=== PATIENT | male | born 1960 | race Caucasian/White ===

== ENCOUNTER 2023-02-16 09:36 | Outpatient (AMB) | payer BC, OTHER, SELFPAY ==
--- NOTE | 2023-02-16 09:45 | AM.OFFWIN_ITS ---
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 Pt c/o L index finger pain that started a week ago. Allergies simvastatin Allergy (Verified 02/16/23 10:10) memory loss Medication List - Last Reconciled 02/16/23 by Christine Stock, SC[employer]ER- folic acid 1 mg PO DAILY lisinopril 20 mg PO DAILY potassium citrate ER 10 mEq PO BID pravastatin 40 mg PO DAILY Do you need a note to return to daycare/school/sports/work: No HPI HPI Comments History of Present Illness Details Here today complains of pain in his left index finger this started 1 week ago. Reports injuring it perhaps lifting something. The tip of his finger was tender to the touch and swollen. He has been treating at home with Advil and immobilization using a splint. Unfortunately after 1 week the pain continues. The swelling has improved some. He denies fevers or chills. Reports good feeling and sensation in the finger. Admits limited range of m otion due to pain and swelling. Review of Systems Const All systems reviewed & are unremarkable except as noted in HPI and below Physical Exam Vital Signs: Last Vital Signs Pulse 74 02/16/23 09:46 BP 136/82 02/16/23 09:46 Pulse Ox 98 02/16/23 09:46 Oxygen Delivery Method Room Air 02/16/23 09:46 BMI result Body Mass Index 30.5 Const Other: Awake alert oriented Speaking in full sentences Positive radial pulse on the left, pain swelling over left DIP joint. Limited range of motion given pain and edema. The skin is intact no erythema or ecchymosis. The nails intact. Assessment & Plan Assessment & Plan (1) Injury of index finger: Code(s): S69.90XA - Unspecified injury of unspecified wrist, hand and finger(s), initial encounter Orders: Orders XR finger LT min 2V Today S69.90XA - Unspecified injury of unspecified wrist, hand and finger(s), initial encounter Patient Instructions: X-ray today. If abnormal findings will refer to Ortho. Patient prefers to use [facility] or the [employer] system is as per his health care is provided. However he is open in [facility] referral. Advised to continue to use [id number] pain relief ,ice, and splinting. Avoid activities that exacerbate the pain. He will be called with the results of the x-ray. Coding Level of Care Code Est Pt Level 3 (30966) Diagnoses Injury of index finger S69.90XA
[2023-02-16 09:46] VITALS: BP 136/82; PULSE 74; O2SAT 98; BMI 30.5
== END 2023-02-16 10:20 | disposition home or self-care (01) ==
PROVIDERS: PCP Internal Medicine; Visit Provider Nurse Practitioner Family
DX: S69.90XA Unspecified injury of unspecified wrist, hand and finger(s), initial encounter (principal)
CPT/HCPCS: 99213

== ENCOUNTER 2023-02-16 10:12 | Outpatient (REF) | payer BC, OTHER, SELFPAY ==
--- NOTE | ~2023-02-16 | XR_ITS ---
EXAMINATION: XR FINGER, LEFT CLINICAL INFORMATION: Unspecified injury of unspecified wrist, hand and finger - left, pain and swelling over DIP joint COMPARISON: None available. TECHNIQUE: 3 views of the left index finger. FINDINGS: The index finger is unremarkable without significant degenerative change, fractures or dislocations. No radiopaque foreign bodies are seen. Some minimal narrowing may be present in the radiocarpal joint, not optimally visualized. Mild degenerative changes are present at the first CMC joint. XR/XR finger LT min 2V IMPRESSION: No evidence of an acute osseous injury. Mild degenerative changes as described above.
== END 2023-02-16 10:13 | disposition home or self-care (01) ==
LOC: HO.HMGCX 10:12
PROVIDERS: PCP Internal Medicine; Visit Provider Nurse Practitioner Family
DX: S62.92XA Unspecified fracture of left hand, initial encounter for closed fracture (principal); X58.XXXA Exposure to other specified factors, initial encounter; Y93.9 Activity, unspecified; Y92.9 Unspecified place or not applicable; Y99.9 Unspecified external cause status
CPT/HCPCS: 73140